=== PATIENT | male | born 1975 | race African-American/Black ===

== ENCOUNTER 2016-12-28 23:27 | Emergency (ER) | payer SELFPAY ==
[2016-12-28 23:36] VITALS: BP 160/92; BMI 36.0
--- NOTE | 2016-12-28 23:54 | DR.GENAD ---
HPI - Complaint/Symptoms Chief Complaint Doctors Comments: Patient states that he was on antibiotics four days ago given to him by the nurse at dialysis because it thought that he was getting an infection. He went to dialysis today. Chief Complaint:: PAIN AT DIALYSIS SHUNT, FEVER AND SHORT OF BREATH - Timing Onset of Chief Complaint: 12/24/16 PMH - PMH Past Medical History: Yes Past Medical History: Diabetes, Dialysis, Hypertension, Renal Disease Past Surgical History: No - Family History History of Family Medical Conditions: Yes Family Medical History: Diabetes Mellitus - Social History Does patient currently use any type of tobacco product: No Have you used tobacco products in the last 12 months: No Type of Tobacco Use: None Does any household member use tobacco: No Alcohol Use: None Do you use any recreational Drugs:: No Lives With: Family Lives Where: Home - infectious screening In the last 2 months have you had wt loss of >10#?: NO Have you had fever, night sweats or hemotysis?: No Have you traveled outside the country in the last 6 months?: No Isolation: Standard ROS - Review of Systems Constitutional: No Symptoms Reported Eyes: No Symptoms Reported ENTM: No Symptoms Reported Respiratoy: No Symptoms Reported Cardiovascular: No Symptoms Reported Gastrointestinal/Abdominal: No Symptoms Reported Genitourinary: No Symptoms Reported Neurological: No Symptoms Reported Musculoskeletal: No Symptoms Reported Integumentary: No Symptoms Reported Hematologic/Lymphatic: No Symptoms Reported Endocrine: No Symptoms Reported Psychiatric: No Symptoms Reported All Other Systems: Reviewed and Negative PE - Vital Signs Vitals: Temperature 98.8 F Pulse Rate 84 Respiratory Rate 18 Blood Pressure 160/92 O2 Sat by Pulse Oximetry 99 - General Limitations: No Limitations General Appearance: Alert, In No Apparent Distress - Head Head Exam: Normal Inspection, Atraumatic - Eyes Eye exam: Normal Appearance, PERRL, EOMI - ENT ENT Exam: Normal Exam External Ear Exam: Normal External Inspection TM/Canal Exam: Bilateral Normal Nose Exam: Normal Nose Exam Mouth Exam: Normal Inspection Throat Exam: Normal Inspection - Neck Neck Exam: Normal Inspection - Chest Chest Inspection: Normal Inspection - Respiratory Respiratory Exam: Normal Lung Sounds Bilat Respiratory Exam: Bilateral Clear to Auscultation - Cardiovascular Cardiovascular Exam: Regular Rate, Normal Rhythm - Abdominal Exam Abdominal Exam: Normal Inspection Abdominal Tenderness: negative: RUQ, RLQ, LUQ, LLQ, Epigastrium, Suprapubic, Diffuse, Mild, Moderate, Severe, Other - Extremities Extremities Exam: Normal Inspection - Back Back Exam: Normal Inspection - Neurologic Neurological Exam: Alert, Oriented X3, CN II-XII Intact - Psychiatric Psychiatric Exam: Normal Affect ROR - Labs Reviewed Result Diagrams: 12/29/16 00:08 12/29/16 00:08 Laboratory: WBC 8.3 X10^3/uL (3.6-10.0) 12/29/16 00:08 RBC 3.36 X10^6/uL (4.7-6.0) L 12/29/16 00:08 Hgb 7.4 g/dL (13.5-18.0) L 12/29/16 00:08 Hct 23.5 % (42.0-54.0) L 12/29/16 00:08 MCV 69.9 fL (80.0-100.0) L 12/29/16 00:08 MCH 22.1 pg (27.0-34.0) L 12/29/16 00:08 MCHC 31.6 g/dL (33.0-35.0) L 12/29/16 00:08 RDW 19.9 % (11.6-16.5) H 12/29/16 00:08 Plt Count 241 X10^3/uL (150.0-450.0) 12/29/16 00:08 Plt Count Comment Adequate (ADEQUATE) 12/29/16 00:08 MPV 8.4 fL (7.4-11.0) 12/29/16 00:08 Neut % 85.2 % (42.0-75.0) H 12/29/16 00:08 Lymph % 9.1 % (21.0-51.0) L 12/29/16 00:08 [place] % 4.3 % (0.0-13.0) 12/29/16 00:08 Eos % 0.7 % (0.9-2.9) L 12/29/16 00:08 Baso % 0.7 % (0.2-1.0) 12/29/16 00:08 Neut # 7.1 x10^3/uL (2.2-4.8) H 12/29/16 00:08 Lymph # 0.8 X10^3/uL (1.3-2.9) L 12/29/16 00:08 [place] # 0.4 x10^3/uL (0.3-0.8) 12/29/16 00:08 Eos # 0.1 x10^3/uL (0.0-0.2) 12/29/16 00:08 Baso # 0.1 X10^3/uL (0.0-0.1) 12/29/16 00:08 Absolute Nucleated RBC 0.1 /100WBC 12/29/16 00:08 Plt Morphology Comment Normal (NORMAL) 12/29/16 00:08 RBC Morphology Abnormal (NORMAL) 12/29/16 00:08 Hypochromasia 1+ A 12/29/16 00:08 Anisocytosis 1+ A 12/29/16 00:08 Microcytosis 1+ A 12/29/16 00:08 Sodium 142 mmol/L (136-145) 12/29/16 00:08 Corrected Sodium 143 mmol/L (136-145) 12/29/16 00:08 Potassium 3.4 mmol/L (3.5-5.1) L 12/29/16 00:08 Chloride 103 mmol/L (98-107) 12/29/16 00:08 Carbon Dioxide 27.4 mmol/L (21-32) 12/29/16 00:08 BUN 35 mg/dL (7-18) H 12/29/16 00:08 Creatinine 6.46 mg/dL (0.70-1.30) H 12/29/16 00:08 Est GFR (MDRD) Af Amer 12 (>60) L 12/29/16 00:08 Est GFR (MDRD) Non-Af 10 (>60) L 12/29/16 00:08 Glucose 125 mg/dL (65-99) H 12/29/16 00:08 Calcium 7.6 mg/dL (8.5-10.1) L 12/29/16 00:08 Corrected Calcium 8.8 mg/dL (8.5-10.1) 12/29/16 00:08 Total Bilirubin 0.80 mg/dL (0.2-1.0) 12/29/16 00:08 AST 34 Units/L (15-37) 12/29/16 00:08 ALT 31 Units/L (12-78) 12/29/16 00:08 Alkaline Phosphatase 89 Units/L (46-116) 12/29/16 00:08 Total Protein 6.4 g/dL (6.4-8.2) 12/29/16 00:08 Albumin 2.5 g/dL (3.4-5.0) L 12/29/16 00:08 Globulin 3.9 g/dL (2.5-4.5) 12/29/16 00:08 Albumin/Globulin Ratio 0.6 Ratio (1.1-2.1) L 12/29/16 00:08 - Diagnosis Discharge Problem: Influenza-like symptoms - Discharge Plan Condition: Stable - Follow ups/Referrals Follow ups/Referrals: NFD,None [Primary Care Provider] - 3 days - Instructions
[2016-12-29 00:19] LABS: BASOPHILS # (AUTO) 0.1 X10^3/uL (0.0-0.1); BASOPHILS % (AUTO) 0.7 % (0.2-1.0); EOSINOPHILS # (AUTO) 0.1 x10^3/uL (0.0-0.2); EOSINOPHILS % (AUTO) 0.7 % (0.9-2.9); HEMATOCRIT 23.5 % (42.0-54.0); HEMOGLOBIN 7.4 g/dL (13.5-18.0); LYMPHOCYTES # (AUTO) 0.8 X10^3/uL (1.3-2.9); LYMPHOCYTES % (AUTO) 9.1 % (21.0-51.0); MEAN CORPUSCULAR HEMOGLOBIN 22.1 pg (27.0-34.0); MEAN CORPUSCULAR HGB CONC 31.6 g/dL (33.0-35.0); MEAN CORPUSCULAR VOLUME 69.9 fL (80.0-100.0); MEAN PLATELET VOLUME 8.4 fL (7.4-11.0); MONOCYTES # (AUTO) 0.4 x10^3/uL (0.3-0.8); MONOCYTES % (AUTO) 4.3 % (0.0-13.0); NEUTROPHILS # (AUTO) 7.1 x10^3/uL (2.2-4.8); NEUTROPHILS % (AUTO) 85.2 % (42.0-75.0); PLATELET COUNT 241 X10^3/uL (150.0-450.0); RED BLOOD COUNT 3.36 X10^6/uL (4.7-6.0); RED CELL DISTRIBUTION WIDTH 19.9 % (11.6-16.5); WHITE BLOOD COUNT 8.3 X10^3/uL (3.6-10.0)
[2016-12-29 00:32] LABS: ALBUMIN 2.5 g/dL (3.4-5.0); CALCIUM 7.6 mg/dL (8.5-10.1); CARBON DIOXIDE 27.4 mmol/L (21-32); COR CA(FOR HYPOALB) 8.8 mg/dL (8.5-10.1); CREATININE 6.46 mg/dL (0.70-1.30); TOTAL PROTEIN 6.4 g/dL (6.4-8.2)
[2016-12-29 00:46] LABS: ANISOCYTOSIS 1+; HYPOCHROMASIA 1+; MICROCYTOSIS 1+; PLATELET MORPHOLOGY COMMENT NORMAL (NORMAL)
== END 2016-12-29 00:58 | disposition home or self-care (01) ==
LOC: ER 23:41
DX: J11.1 Influenza due to unidentified influenza virus with other respiratory manifestations (principal)
CPT/HCPCS: 36415; 80053; 85025; 87502; 87503; 99282